=== PATIENT | female | born 1955 | race American Indian/Alaskan Native ===

== ENCOUNTER 2022-04-25 16:22 | Emergency (ER) | payer MEDICARE ==
[2022-04-25] MEDS ORDERED: METOCLOPRAMIDE 10 MG TAB PO ONE ×2 (16:37→19:23)
[2022-04-25] MEDS ORDERED: oxyCODONE /ACETAMINOPHEN 5-325MG TAB PO ONE (16:37)
[2022-04-25] MEDS ORDERED: TETANUS,DIPH,PERTUSS(ACELL) VACCINE 0.5 ML SYRINGE IM ONE (16:37)
--- NOTE | 2022-04-25 16:41 | Event Note ---
Date: 04/25/22 Verbal report received from emergency medical services. EMS documentation not available at time of chart dictation Medical screening examination note: 66-year-old female presenting to the hospital with EMS with complaint of bilateral knee pain, head pain, and right shoulder pain after mechanical trip and fall while getting out of a car. Eva linares has unremarkable vital signs and is protecting her airway and moves 4 extremities. She is in a right upper extremity sling and has bilateral lower extremity anterior knee abrasions, as well as a forehead hematoma. Given advanced age and closed head injury, obtain CT scan of the brain and cervical spine. Obtain x-ray of the right shoulder, and x-ray of the bilateral knees. Treat with pain medication, nausea medication and tetanus vaccination. Distal upper extremity is nontender. Detailed history and physical to be performed by oncoming ER provider. Patient speaking in full sentences, and protecting her airway at this time Vital Signs 04/25/22 16:29 Temperature 98.3 F Pulse Rate 104 H Respiratory 18 Rate Blood Pressure 160/90 [Left] O2 Sat by Pulse 97 Oximetry
[2022-04-25] MEDS ORDERED: MORPHINE 4 MG/1 ML INJ IM ONE ×2 (17:36→19:23)
[2022-04-25] MEDS ORDERED: ONDANSETRON 4 MG ODT TAB PO ONE (17:36)
--- NOTE | 2022-04-25 17:40 | Emergency Department Report ---
ED General Adult HPI - General Chief complaint: Shoulder Injury Stated complaint: RT SHOULDER PAIN Time Seen by Provider: 04/25/22 16:45 Source: patient, EMS (Verbal report received from emergency medical services. EMS documentation not available at time of chart dictation ), RN notes reviewed Mode of arrival: Stretcher Limitations: Physical Limitation - History of Present Illness Initial comments: The patient was evaluated in the emergency department for symptoms described in the history of present illness. He/she was evaluated in the context of the global COVID-19 pandemic, which necessitated consideration that the patient might be at risk for infection with the virus that causes COVID-19. Institutional protocols and algorithms that pertain to the evaluation of patients at risk for COVID-19 are in a state of rapid change based on informat ion released by regulatory bodies including the CDC and federal and state organizations. These policies and algorithms were followed during the patient's care in the emergency department. Please note that these policies, procedures and recommendations changed on a rapid basis. This is a 66-year-old female who is right-hand dominant, presents to the department today with a complaint of right shoulder pain after mechanical trip and fall. She fell onto her right shoulder, bilateral knees and hit her head. No weakness. Right shoulder pain is sharp and throbbing, increases with palpation and decreases with rest and position. EMS placed patient in the sling. Patient does not recall her last tetanus vaccination status. The patient reports that she was driving her grandson to a destination, and she parked in a regular spot instead of a handicap spot while in the very hot sun. She reports that after getting out of the car, her left foot got stuck on a concrete median, and then she fell and hit her head. She thinks she may have transiently lost consciousness after hitting her head. She denies antecedent symptoms. She specifically denies travel, surgery, immobilization, leg pain, leg swelling, chest pain, new/different shortness of breath, hematemesis and bright red blood per rectum before the event -: Sudden Location: right, upper extremity, lower extremity (Bilateral anterior knee) Severity scale (0 -10): 7 Consistency: constant Improves with: rest Worsens with: movement - Related Data Previous Rx's Medication Instructions Recorded Last Taken Type Acetaminophen [Acetaminophen ER 650 mg PO Q6HR PRN #30 tab 04/25/22 Unknown Rx TAB] Ibuprofen [Motrin] 400 mg PO Q8H PRN #30 tablet 04/25/22 Unknown Rx Metoclopramide [Reglan] 10 mg PO QID PRN #30 tablet 04/25/22 Unknown Rx Morphine Sulfate [Morphine Sulfate 7.5 mg PO Q6HR PRN #10 tablet 04/25/22 Unknown Rx IR] Allergies Allergy/AdvReac Type Severity Reaction Status Date / Time Penicillins Allergy Swelling Verified 04/25/22 16:37 Sulfa (Sulfonamide Allergy Swelling Verified 04/25/22 16:37 Antibiotics) ED Review of Systems ROS: Stated complaint: RT SHOULDER PAIN Other details as noted in HPI Constitutional: denies: fever Eyes: denies: eye discharge ENT: denies: epistaxis Respiratory: denies: cough Cardiovascular: denies: chest pain, syncope Gastrointestinal: denies: abdominal pain Musculoskeletal: back pain, arthralgia, myalgia Skin: other (Bilateral knee abrasion) Neurological: denies: weakness Psychiatric: anxiety ED Past Medical Hx - Medications Home Medications: Home Medications Medication Instructions Recorded Confirmed Last Taken Type Acetaminophen [Acetaminophen ER 650 mg PO Q6HR PRN #30 tab 04/25/22 Unknown Rx TAB] Ibuprofen [Motrin] 400 mg PO Q8H PRN #30 tablet 04/25/22 Unknown Rx Metoclopramide [Reglan] 10 mg PO QID PRN #30 tablet 04/25/22 Unknown Rx Morphine Sulfate [Morphine Sulfate 7.5 mg PO Q6HR PRN #10 tablet 04/25/22 Unknown Rx IR] ED Physical Exam - General Limitations: Physical Limitation General appearance: alert, anxious, in distress, obese - Head Head exam: Present: normocephalic, other (Forehead abrasion) - Eye Eye exam: Present: normal appearance, EOMI. Absent: nystagmus - ENT ENT exam: Present: normal exam, normal orophraynx, mucous membranes moist, normal external ear exam - Neck Neck exam: Present: normal inspection, full ROM, other (Paracervical tenderness). Absent: tenderness, meningismus - Respiratory Respiratory exam: Present: normal lung sounds bilaterally. Absent: respiratory distress, wheezes, rales, rhonchi, stridor, decreased breath sounds - Cardiovascular Cardiovascular Exam: Present: normal rhythm, tachycardia, normal heart sounds. Absent: bradycardia, irregular rhythm, systolic murmur, diastolic murmur, rubs, gallop - GI/Abdominal GI/Abdominal exam: Present: soft. Absent: distended, tenderness, guarding, rebound, rigid, pulsatile mass - Extremities Exam Extremities exam: Present: full ROM (Left upper extremity. Bilateral lower extremities.), tenderness (There is right shoulder tenderness.), normal capillary refill, other (2+ pulses noted in the bilateral upper and lower ext remities. The long bones are nontender in the bilateral lower extremities. The left upper extremity is nontender. The right upper extremity is tender in the right shoulder. Humerus, elbow and distal forearm right nontender.). Absent: normal inspection (Bilateral anterior knee abrasion) - Back Exam Back exam: Present: normal inspection, muscle spasm, paraspinal tenderness. Absent: tenderness, CVA tenderness (R), vertebral tenderness - Neurological Exam Neurological exam: Present: alert, other (There is no facial droop. The tongue is midline. EOMI. 5/5 vacation guide strength in the bilateral upper extremities. Sensa tion intact to light touch in the deltoid, median, radial, ulnar distributions of the bilateral upper extremities.) - Psychiatric Psychiatric exam: Present: anxious - Skin Skin exam: Present: warm, abrasion, ecchymosis ED Course Vital Signs 04/25/22 04/25/22 16:29 19:17 Temperature 98.3 F Pulse Rate 104 H 95 H Respiratory 18 18 Rate Blood Pressure 160/90 123/72 [Left] O2 Sat by Pulse 97 95 Oximetry - Reevaluation(s) Reevaluation #1: 04/25/22 17:55 Differential diagnosis, including but not limited to: Sprain, strain, fracture, dislocation, abrasion, closed head injury. Assessment and plan: 66-year-old female presenting to the department after mechanical fall, with right shoulder pain, and closed head injury. Given advanced age, right shoulder pain, distracting injury, obtain CT scan of the brain and cervical spine. X-ray of the right shoulder demonstrates an impacted humerus fracture. Obtain x-ray of the humerus and elbow. Bilateral knee x-rays negative for acute findings. Placed patient in right shoulder sling. Reassess after CT scans and remainder of x-rays have resulted. Administer tetanus vaccination, pain medication 04/25/22 18:33 EKG is abnormal. Patient does report a history of lupus and hypertension. Patient reports that she follows with a doctor Maik Wilkerson She also reports that she saw her lupus physician last week, and was informed that her lupus is "okay." She takes chronic steroids, as well as hydroxychloroquine. She does have a history of renal insufficiency which improved with diet and lifestyle modifications. Given PVCs, check appropriate laboratory studies. Reassess. Currently awaiting CT scan of the brain and C- spine. I do not appreciate any significant abnormalities. Patient is updated on the natural history of right proximal humerus fracture 04/25/22 19:24 CT scan brain and cervical spine negative for acute findings. Laboratory studies essentially unremarkable. Patient reports feeling improved. She provides consent for the details of her medical care to be discussed with family member. Discussed natural history of closed head injury, concussion, and proximal humerus fracture. All questions answered. Return precautions reviewed. No loss of consciousness while here in the department. She is reliable to follow-up with outpatient primary care and/or orthopedics 04/25/22 20:13 Feeling improved after pain medication. Observed in this department for hours without clinical decompensation. Reliable to follow-up. Discharge at this point in time. ED Medical Decision Making - Lab Data Result diagrams: 04/25/22 18:33 04/25/22 18:33 Vital Signs 04/25/22 16:29 Temperature 98.3 F Pulse Rate 104 H Respiratory 18 Rate Blood Pressure 160/90 [Left] O2 Sat by Pulse 97 Oximetry Lab Results 04/25/22 04/25/22 04/25/22 Range/Units 18:33 18:33 18:33 WBC 13.3 H (4.5-11.0) K/mm3 RBC 4.74 (3.65-5.03) M/mm3 Hgb 12.3 (10.1-14.3) gm/dl Hct 39.6 (30.3-42.9) % MCV 84 (79-97) fl MCH 26 L (28-32) pg MCHC 31 (30-34) % RDW 15.0 (13.2-15.2) % Plt Count 211 (140-440) K/mm3 PT 12.7 (12.2-14.9) Sec. INR 0.87 (0.87-1.13) Sodium 141 (137-145) mmol/L Potassium 4.4 (3.6-5.0) mmol/L Chloride 105.5 (98-107) mmol/L Carbon Dioxide 21 L (22-30) mmol/L Anion Gap 19 mmol/L BUN 14 (7-17) mg/dL Creatinine 1.0 (0.6-1.2) mg/dL Estimated GFR > 60 ml/min BUN/Creatinine Ratio 14 % Glucose 99 (65-100) mg/dL Calcium 9.3 (8.4-10.2) mg/dL Magnesium 2.00 (1.7-2.3) mg/dL Total Bilirubin 0.20 (0.1-1.2) mg/dL AST 26 (5-40) units/L ALT 18 (7-56) units/L Alkaline Phosphatase 86 (35-129) units/L Total Creatine Kinase 380 H (30-135) units/L Troponin T < 0.010 (0.00-0.029) ng/mL Total Protein 7.8 (6.3-8.2) g/dL Albumin 4.3 (3.9-5) g/dL Albumin/Globulin Ratio 1.2 % - EKG Data -: EKG Interpreted by Nh EKG shows normal: sinus rhythm - EKG Data When compared to previous EKG there are: previous EKG unavailable 04/25/22 18:33 The EKG is interpreted at 18: 25 Sinus rhythm, with a ventricular rate of approximately 79 bpm. There is a normal axis. There is normal P wave axis. There are paired PVCs. PVC show QTC of 5 1 2 ms. This is an abnormal EKG. This is not a STEMI. - Radiology Data Radiology results: pending, report reviewed, image reviewed BILATERAL KNEE, 6 VIEWS INDICATION / CLINICAL INFORMATION: fall b/l knee pain. COMPARISON: None available. FINDINGS: Right knee: Moderate degenerative changes are present within the knee primarily affecting the medial joint compartment. No joint effusion. No fracture or malalignment. Left knee: Moderate to severe degenerative changes are present in the medial joint compartment of the left knee. No fracture or malalignment. No joint effusion. IMPRESSION: 1. No fracture of either knee. 2. Moderate/severe degenerative change bilaterally. Signer Name: Ariane Mccullough MD Signed: 04/25/2022 4:43 PM Workstation Name: [id number] RIGHT SHOULDER, 3 VIEWS INDICATION / CLINICAL INFORMATION: fall right shhoulder pain. COMPARISON: None available. FINDINGS: There is a grossly comminuted fracture involving the humeral head and humeral neck. There is some degree of impaction at fracture site. I do not see dislocation of the glenohumeral joint. However, views are limited. AC joint maintains normal alignment. The scapula appears intact. IMPRESSION: Markedly comminuted fracture of the humeral head and neck without significant displacement or obvious dislocation. Signer Name: Ariane Mccullough MD Signed: 04/25/2022 4:46 PM Workstation Name: [id number] [facility] [address] [place] [address] XRay Report Signed Patient: CHRIS TANNER MR#: [id number] : 1955 Acct:[id number] Age/Sex: 66 / F ADM Date: 04/25/22 Loc: ED Attending Dr: Ordering Physician: ALESSIA QUEZADA MD Date of Service: 04/25/22 Procedure(s): XR humerus 2+V RT Accession Number(s): [id number] cc: ALESSIA QUEZADA MD Fluoro Time In Minutes: RIGHT HUMERUS, 2 VIEWS INDICATION / CLINICAL INFORMATION: fall right arm pain. COMPARISON: Right shoulder radiographs earlier today. FINDINGS: There is comminuted impacted fracture of the humeral head and humeral neck. The remainder of the humerus is intact. Signer Name: Ariane Mccullough MD Signed: 04/25/2022 6:01 PM Workstation Name: [id number] Transcribed By: JR Dictated By: Ariane Mccullough MD Electronically Authenticated By: Ariane Mccullough MD Signed Date/Time: 04/25/22 180 DD/ 1759 TD/TT: CT HEAD WITHOUT CONTRAST INDICATION / CLINICAL INFORMATION: fall closed head injury. TECHNIQUE: All CT scans at this location are performed using CT dose reduction for ALARA by means of automated exposure control. COMPARISON: None available. FINDINGS: HEMORRHAGE: No evidence of intracranial hemorrhage or extra-axial fluid collection. EXTRA-AXIAL SPACES: Cortical sulci, sylvian fissures and basilar cisterns have an unremarkable appearance. VENTRICULAR SYSTEM: The third and lateral ventricles are of normal size and configuration. CEREBRAL PARENCHYMA: No areas of abnormal brain parenchymal attenuation are identified. There is no indication of recent infarction. MIDLINE SHIFT OR HERNIATION: There is no mass effect. CEREBELLUM / BRAINSTEM: Brainstem and cerebellum have an unremarkable appearance. MIDLINE STRUCTURES:No abnormalities of the pituitary gland or pineal region are identified. INTRACRANIAL VESSELS:C alcified atherosclerotic plaque is present along the course the cavernous segments of both internal carotid arteries ORBITS: Disconjugate gaze is noted. No additional abnormality. SOFT TISSUES of HEAD: No significant abnormality. CALVARIUM: Small scalp hematoma right forehead. No additional abnormality. PARANASAL SINUSES / MASTOID AIR CELLS: Visualized portions of the paranasal sinuses are free from inflammatory mucosal disease. Mastoid air cells are normally pneumatized. IMPRESSION: 1. No acute intracranial abnormality. Signer Name: Kelvin Burgos MD Signed: 04/25/2022 5:45 PM Workstation Name: [email or web address] CERVICAL SPINE WITHOUT CONTRAST INDICATION / CLINICAL INFORMATION: fall upper ext pain, paracervical neck pain. TECHNIQUE: Axial CT images were obtained through the cervical spine. Sagittal and coronal reformatted images were produced. All CT scans at this location are performed using CT dose reduction for ALARA by means of automated exposure control. COMPARISON: None available. FINDINGS: POSTOPERATIVE CHANGE:none ALIGNMENT: Loss of the normal cervical lordosis is noted. No additional abnormalities of alignment are identified. VERTEBRAE: No indication of fracture or bone destruction. DISC SPACES: Loss of disc height is present throughout cervical region. DEGENERATIVE CHANGES: Anterior and posterior osteophyte formation is observed at multiple levels. Widespread facet arthropathy is observed. Uncovertebral arthropathy is also present at multiple levels. Multifocal neuroforaminal stenosis is evident. Central spinal canal remains adequate in size. CRANIOCERVICAL JUNCTION:No significant abnormality. SPINAL CANAL: Central spinal canal is adequately maintained throughout. PARASPINAL SOFT TISSUES: No significant abnormality. LUNG APICES: No significant abnormality of visualized lungs. IMPRESSION: 1. Widespread cervical spondylosis with multifocal neuroforaminal narrowing. 2. No indication of fracture or traumatic subluxation. Signer Name: Kelvin Burgos MD Signed: 04/25/2022 5:48 PM Workstation Name: [id number] Critical care attestation.: If time is entered above; I have spent that time in minutes in the direct care of this critically ill patient, excluding procedure time. ED Disposition Clinical Impression: Closed right humeral fracture, Right shoulder pain, Closed head injury, Fall, Right arm pain, Knee pain, Multiple abrasions Disposition: 01 HOME / SELF CARE / HOMELESS Is pt being admited?: No Does the pt Need Aspirin: No Condition: Good Instructions: Head Injury, Adult, Humerus Fracture Rehab-SportsMed Additional Instructions: Keep the right upper extremity sling in place. Pain typically gets worse before gets better after fall and blunt trauma. Rest and avoid heavy lifting and strenuous physical activities. Patient is found to have a proximal right-sided humerus fracture. Strongly recommend that patient follow-up with an orthopedic surgeon within the next week. Take the pain medication and nausea medication as needed and directed. Patient may have a concussion from fall and closed head injury, symptoms of concussion include headache, dizziness, forgetfulness, confusion. Please return to the emergency room right away with new pain, worsened pain, migration of pain, projectile vomiting, change in mental status, confusion, inability tolerate liquid feeds, new, worsened or different symptoms not present on the initial emergency room evaluation If taking the morphine sulfate for severe breakthrough pain not improved by Tylenol or Motrin, do not drive, consume alcohol, or make important decisions. Exercise caution when taking the morphine sulfate medication, as this medication may be habit-forming and addictive. This medication may also cause respiratory depression. Prescriptions: Acetaminophen [Acetaminophen ER TAB] 650 mg PO Q6HR PRN #30 tab PRN Reason: Pain Morphine Sulfate [Morphine Sulfate IR] 7.5 mg PO Q6HR PRN #10 tablet PRN Reason: Pain , Severe (7-10) Ibuprofen [Motrin] 400 mg PO Q8H PRN #30 tablet PRN Reason: Pain , Severe (7-10) Metoclopramide [Reglan] 10 mg PO QID PRN #30 tablet PRN Reason: Nausea Referrals: [facility] [Provider Group] - 3-5 Days ERI MEDEL MD [Staff Physician] - 3-5 Days SHAMEKA LANZA MD [Staff Physician] - 3-5 Days OSVALDO WILKERSON MD [Referring] - 3-5 Days Forms: Work/School Release Form(ED)
--- NOTE | 2022-04-25 17:48 | XRay Report ---
BILATERAL KNEE, 6 VIEWS INDICATION / CLINICAL INFORMATION: fall b/l knee pain. COMPARISON: None available. FINDINGS: Right knee: Moderate degenerative changes are present within the knee primarily affecting the medial joint compartment. No joint effusion. No fracture or malalignment. Left knee: Moderate to severe degenerative changes are present in the medial joint compartment of the left knee. No fracture or malalignment. No joint effusion. IMPRESSION: 1. No fracture of either knee. 2. Moderate/severe degenerative change bilaterally. Signer Name: Ariane Mccullough MD Signed: 04/25/2022 5:43 PM Workstation Name: [id number]
--- NOTE | 2022-04-25 17:51 | XRay Report ---
RIGHT SHOULDER, 3 VIEWS INDICATION / CLINICAL INFORMATION: fall right shhoulder pain. COMPARISON: None available. FINDINGS: There is a grossly comminuted fracture involving the humeral head and humeral neck. There is some deg ree of impaction at fracture site. I do not see dislocation of the glenohumeral joint. However, views are limited. AC joint maintains normal alignment. The scapula appears intact. IMPRESSION: Markedly comminuted fracture of the humeral head and neck without significant displacemen t or obvious dislocation. Signer Name: Ariane Mccullough MD Signed: 04/25/2022 5:46 PM Workstation Name: [id number]
--- NOTE | 2022-04-25 18:05 | XRay Report ---
RIGHT HUMERUS, 2 VIEWS INDICATION / CLINICAL INFORMATION: fall right arm pain. COMPARISON: Right shoulder radiographs earlier today. FINDINGS: There is comminuted impacted fracture of the humeral head and humeral neck. The remainder of the kristal yefri is intact. Signer Name: Ariane Mccullough MD Signed: 04/25/2022 6:01 PM Workstation Name: [id number]
--- NOTE | 2022-04-25 18:49 | Cat Scan Report ---
CT HEAD WITHOUT CONTRAST INDICATION / CLINICAL INFORMATION: fall closed head injury. TECHNIQUE: All CT scans at this location are performed using CT dose reduction for ALARA by means of automated e xposure control. COMPARISON: None available. FINDINGS: HEMORRHAGE: No evidence of intracranial hemorrhage or extra-axial fluid collection. EXTRA-AXIAL SPACES: Cortical sulci, sylvian fissures and basilar cisterns have an unremarkable appear ance. VENTRICULAR SYSTEM: The third and lateral ventricles are of normal size and configuration. CEREBRAL PARENCHYMA: No areas of abnormal brain parenchymal attenuation are identified. There is no i ndication of recent infarction. MIDLINE SHIFT OR HERNIATION: There is no mass effect. CEREBELLUM / BRAINSTEM: Brainstem and cerebellum have an unremarkable appearance. MIDLINE STRUCTURES:No abnormalities of the pituitary gland or pineal region are identified. INTRACRANIAL VESSELS:Calcified atherosclerotic plaque is present along the course the cavernous segme nts of both internal carotid arteries ORBITS: Disconjugate gaze is noted. No additional abnormality. SOFT TISSUES of HEAD: No significant abnormality. CALVARIUM: Small scalp hematoma right forehead. No additional abnormality. PARANASAL SINUSES / MASTOID AIR CELLS: Visualized portions of the paranasal sinuses are free from inf lammatory mucosal disease. Mastoid air cells are normally pneumatized. IMPRESSION: 1. No acute intracranial abnormality. Signer Name: Kelvin Burgos MD Signed: 04/25/2022 6:45 PM Workstation Name: [email or web address]
--- NOTE | 2022-04-25 18:52 | Cat Scan Report ---
CT CERVICAL SPINE WITHOUT CONTRAST INDICATION / CLINICAL INFORMATION: fall upper ext pain, paracervical neck pain. TECHNIQUE: Axial CT images were obtained through the cervical spine. Sagittal and coronal reformatted images wer e produced. All CT scans at this location are performed using CT dose reduction for ALARA by means of automated exposure control. COMPARISON: None available. FINDINGS: POSTOPERATIVE CHANGE:none ALIGNMENT: Loss of the normal cervical lordosis is noted. No additional abnormalities of alignment ar e identified. VERTEBRAE: No indication of fracture or bone destruction. DISC SPACES: Loss of disc height is present throughout cervical region. DEGENERATIVE CHANGES: Anterior and posterior osteophyte formation is observed at multiple levels. Wid espread facet arthropathy is observed. Uncovertebral arthropathy is also present at multiple levels. Multifocal neuroforaminal stenosis is evident. Central spinal canal remains adequate in size. CRANIOCERVICAL JUNCTION:No significant abnormality. SPINAL CANAL: Central spinal canal is adequately maintained throughout. PARASPINAL SOFT TISSUES: No significant abnormality. LUNG APICES: No significant abnormality of visualized lungs. IMPRESSION: 1. Widespread cervical spondylosis with multifocal neuroforaminal narrowing. 2. No indication of fracture or traumatic subluxation. Signer Name: Kelvin Burgos MD Signed: 04/25/2022 6:48 PM Workstation Name: [email or web address]
[2022-04-25 18:53] LABS: Hematocrit 39.6 % (30.3-42.9); Hemoglobin 12.3 gm/dl (10.1-14.3); Mean Corpuscular HGB Conc 31 % (30-34); Mean Corpuscular Volume 84 fl (79-97); Platelet Count 211 K/mm3 (140-440); Red Blood Count 4.74 M/mm3 (3.65-5.03)
[2022-04-25 19:02] LABS: INR 0.87 (0.87-1.13)
[2022-04-25 19:16] LABS: Alanine Aminotransferase 18 units/L (7-56); Albumin 4.3 g/dL (3.9-5); BUN/Creatinine Ratio 14; Blood Urea Nitrogen 14 mg/dL (7-17); Calcium 9.3 mg/dL (8.4-10.2); Hemolysis Index 43
[2022-04-25 20:27] VITALS: BP 131/80
--- NOTE | 2022-04-27 17:40 | Electrocardiograph Report ---
[facility] Test Date: 2022-04-25 Test Time: 18:25:23 Pat Name: CHRIS TANNER Department: Room: Gender: F Hearing Instrument Specialist: TESSA : 1955 Requested By: ALESSIA QUEZADA Order Number: [id number] Reading MD: Tomasa Small Measurements Intervals [place] Rate: 79 P: 63 OK: 158 QRS: 39 QRSD: 79 T: 63 QT: 447 QTc: 512 Interpretive Statements Sinus rhythm with frequent PVCs and ventricular couplets Prolonged QT interval No previous ECG available for comparison Electronically Signed On 04-27-2022 17:39:45 EDT by Tomasa Small
== END 2022-04-25 21:00 | disposition home or self-care (01) ==
LOC: ED 16:22
DX: S42.301A Unspecified fracture of shaft of humerus, right arm, initial encounter for closed fracture (principal); S09.90XA Unspecified injury of head, initial encounter; M25.511 Pain in right shoulder; M79.601 Pain in right arm; M25.561 Pain in right knee; W19.XXXA Unspecified fall, initial encounter; Y93.89 Activity, other specified; Y92.89 Other specified places as the place of occurrence of the external cause; Y99.8 Other external cause status
CPT/HCPCS: 36415; 70450; 72125; 73030; 73060; 73562; 80053; 82550; 83735; 84443; 84484; 85027; 85610; 93005; 96372; 99285; J2270